=== PATIENT | female | born 1975 | race African-American/Black ===

== ENCOUNTER 2016-12-13 03:32 | Emergency (ER) | payer OTHER ==
[~2016-12-13] VITALS: Ht 175.3 cm; Wt 90.7 kg
--- NOTE | ~2016-12-13 | EKG ---
[facility] [place] [address] ELECTROCARDIOGRAM REPORT Name: LASHONDA AYALA Room #: DEP ROSA MARIA Cody#: [id number] Admission: 12/13/16 Attend Phys: Discharge: 12/13/16 Date of : 71 Report #: [id number] THIS REPORT FOR: //name// [facility] ED Test Date: 2016-12-13 Test Time: 04:19:59 Pat Name: LASHONDA AYALA Department: Room: Gender: F Transplant Case Manager: LUI : 1975 Requested By: Jose Enrique Funez Order Number: [id number] MD: Felice Ornelas Measurements Intervals [place] Rate: 96 P: 74 [place]: 156 QRS: 54 QRSD: 83 T: 72 QT: 460 QTc: 582 Interpretive Statements Sinus rhythm LAE, consider biatrial enlargement Probable left ventricular hypertrophy Anterior Q waves, possibly due to LVH Prolonged QT interval No previous ECG available for comparison Electronically Signed On 12-13-2016 8:26:04 CDT by Felice Ornelas [email or web address] <ELECTRONICALLY SIGNED> By: Felice Ornelas MD, [facility] 12/13/16 0826 0419 0419 Felice Ornelas MD, FACC /EPI
[2016-12-13] MEDS ORDERED: AMLODIPINE BESY10 MG PO (03:56)
[2016-12-13] MEDS ORDERED: AMITIZA 24 MCG24 MC1 (03:57)
[2016-12-13] MEDS ORDERED: LISINOPRIL10 MG PO (03:59)
[2016-12-13 04:43] LABS: ABSOLUTE NEUTROPHILS 8.4 thou/uL (1.4-8.2); BASOPHILS 0.5 % (0.0-2.0); EOSINOPHILS 0.7 % (0.0-3.0); HEMATOCRIT 42.1 % (37.0-47.0); HEMOGLOBIN 14.4 gm/dL (12.0-15.0); LYMPHOCYTES 14.5 % (24.0-44.0); MCH 30.4 pg (26.0-34.0); MCHC 34.2 g/dL (28.0-37.0); MONOCYTES 7.1 % (1.0-8.0); PLATELET COUNT 238 thou/uL (150-400); POLYS 77.2 % (36.0-66.0); RBC 4.73 mil/uL (4.20-5.00); RDW 14.3 % (10.5-14.5); WBC 10.9 thou/uL (4.0-11.0)
[2016-12-13 04:56] LABS: ALBUMIN 4.2 g/dL (3.4-5.0); ALKALINE PHOSPHATASE 73 U/L (46-116); ANION GAP 16 mmol/L (7-16); BUN 23 mg/dL (7-18); CHLORIDE 92 mmol/L (98-107); CO2 23 mmol/L (21-32); CREATININE 2.9 mg/dL (0.6-1.0); GLUCOSE 126 mg/dL (74-106); SGOT 21 U/L (15-37); SGPT 17 U/L (30-65); SODIUM 131 mmol/L (136-145); TOTAL BILIRUBIN 0.7 mg/dL (<0.1-1.0); TOTAL PROTEIN 8.8 g/dL (6.4-8.2); TROPONIN-I < 0.04 ng/mL (<0.04-0.07)
[2016-12-13] MEDS ORDERED: ZOFRAN ODT4 MG PO (04:58)
[2016-12-13] MEDS ORDERED: FLONASE 0.05%50 MCG NASAL (04:58)
[2016-12-13] MEDS ORDERED: LEVAQUIN 500 M500 M2 PO (04:58)
[2016-12-13] MEDS ORDERED: HYDROCODONE-AP1 EAC6 PO (04:58)
[2016-12-13] MEDS ORDERED: MUCINEX TA600 MG/TA2 PO (04:58)
[2016-12-13] MEDS ORDERED: BENTYL 20 MG TA20 M1 PO (04:59)
[2016-12-13] MEDS ORDERED: TRAMADOL 50 MG50 MG PO (04:59)
[2016-12-13] MEDS ORDERED: PANTOPRAZOLE SO40 M1 PO (04:59)
[2016-12-13] MEDS ORDERED: AUGMENTIN 875875 MG PO (04:59)
[2016-12-13] MEDS ORDERED: LISINOPRIL40 MG PO (04:59)
[2016-12-13 05:00] LABS: MANUAL DIFF NO
[2016-12-13] MEDS ORDERED: DULCOLAX5 MG PO (05:06)
[2016-12-13 05:09] LABS: CALCIUM 10.1 mg/dL (8.5-10.1)
[2016-12-13] MEDS ORDERED: ZOFRAN ODT4 MG DISSOLVE (05:14)
[2016-12-13] MEDS ORDERED: PRILOSEC 20 MG20 MG PO (05:14)
[2016-12-13 05:25] LABS: LARGE PLATELETS OCCASIONAL
[2016-12-13 06:05] VITALS: BP 167/137
== END 2016-12-13 06:06 | disposition home or self-care (01) ==
LOC: ER 03:32
PROVIDERS: Emergency Medicine
DX: I12.9 Hypertensive chronic kidney disease with stage 1 through stage 4 chronic kidney disease, or unspecified chronic kidney disease (principal); K85.90 Acute pancreatitis without necrosis or infection, unspecified; N18.9 Chronic kidney disease, unspecified; K59.00 Constipation, unspecified

== ENCOUNTER 2017-01-27 10:54 | Inpatient (IN) | payer OTHER ==
[~2017-01-27] VITALS: Ht 175.3 cm; Wt 80.1 kg
[2017-01-27] VITALS (10 sets, daily range): BP systolic 106–231; BP diastolic 76–139
--- NOTE | ~2017-01-27 | HC ---
[facility] [place] [address] CONSULTATION Name: LASHONDA AYALA Room #: 457-P [facility] IN M.R.#: [id number] Admission: 01/27/17 Attend Phys: Davida Carbone Discharge: 01/28/17 Date of : 71 Report #: [id number] THIS REPORT FOR: //name// CC: AMANDO physician/PCP Davida Carbone DATE OF SERVICE: 01/28/2017 REASON FOR CONSULTATION: Chronic kidney disease and hypertension. 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 She presented to the Emergency Room after not having had her medications for several days. She had accelerated hypertension at that time and was admitted for further evaluation and treatment. It is difficult to communicate with the patient, but she tells me she has not taken her medications recently, although the reason for this is unclear. She has a history of hypertension as well as pancreatitis. She has not seen a molder shoulder pad previously. She denies headache, fevers, chills, sweats or other constitutional complaints. ALLERGIES: She has no known allergies. MEDICATIONS: On admission to the hospital are reported to include lisinopril 40 mg daily, amlodipine 10 mg daily. PAST MEDICAL HISTORY: Otherwise remarkable for deafness. SOCIAL HISTORY: She does not smoke and her history of substance and alcohol use is unknown. REVIEW OF SYSTEMS: Remarkable for the absence of peripheral edema. She denies shortness of breath, headache, epistaxis, loss of consciousness. She denies nausea, vomiting, diarrhea or constipation. PHYSICAL EXAMINATION: GENERAL: Reveals a well-developed female who is edentulous but in no acute distress. VITAL SIGNS: Current blood pressure 117/78, temperature 98.8, pulse 112, respirations 18. SKIN: Warm and dry without rash or erythema. There is no gross clubbing, cyanosis, edema or adenopathy. HEENT: The head is normocephalic and atraumatic. The sclerae are white. The pharynx is benign. NECK: Supple. LUNGS: Hitchcock are grossly clear to percussion and auscultation. CARDIOVASCULAR: Reveals a regular rate and rhythm without rub. [facility] [address] [place] [address] CONSULTATION Name: LASHONDA AYALA Room #: 457-P [facility] IN M.R.#: [id number] Admission: 01/27/17 Attend Phys: Davida Carbone Discharge: 01/28/17 Date of : 71 Report #: [id number] ABDOMEN: Soft and nontender. NEUROLOGIC: Reveals the patient to be deaf, but otherwise with a nonfocal examination. DIAGNOSTIC DATA: Available at this time include sodium 136, potassium 3.6, chloride 103, CO2 22, BUN 29, creatinine 1.7. Albumin 3.7. White blood cell count 6200, hemoglobin 13.1, hematocrit 38.8, platelet count 207,000. ASSESSMENT: 1. 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 She has no records indicating previous renal evaluation, so I will obtain a renal ultrasound as well as current urinalysis, urine for sodium, creatinine and protein as well as screening serologic studies. 2. Hypertensive urgency/accelerated hypertension at this time overly treated with a blood pressure lower than what is good for her given her elevated pressures on initial presentation. I agree with lisinopril and amlodipine, but we will reduce the amlodipine dosage at this time. Every effort should be made to keep her on a once daily antihypertensive regimen given her history of medication noncompliance. 3. Deafness. PLAN: We will follow the patient closely and obtain urine and renal evaluation as outlined. Please see orders. <ELECTRONICALLY SIGNED> By: Frankie Abel MD 01/29/17 0708 1206 1513 Frankie Abel MD /nt
--- NOTE | ~2017-01-27 | 2DMMODE ---
[facility] [address] [place] [address] 2 D/M-MODE ECHOCARDIOGRAM Name: LASHODNA AYALA Room #: 457-P [facility] IN .R.#: [id number] Admission: 01/27/17 Attend Phys: Davida Lowe Discharge: Date of : 71 Date of Service: 01/28/17 1539 Report #: [id number] THIS REPORT FOR: //name// APPROVED REPORT Study performed: 01/28/2017 13:19:41 EXAM: Comprehensive 2D, Doppler, and color-flow Echocardiogram Patient Location: Bedside Room #: [facility] Status: routine Other Information Study Quality: Adequate Indications Dyspnea Chest Pain Hypertension/HDD 2D Dimensions RVDd: 41.77 mm LVEF(%): 73.62 (>50%) IVSd: 9.36 (7-11mm) LVOT Diam: 24.42 (18-24mm) LVDd: 45.12 mm PWd: 11.58 (7-11mm) LVDs: 25.97 (25-40mm) Aortic Root: 34.18 mm Zamora's LVEF: 73.62 % Volumes Left Atrial Volume (Systole) Single Plane 4CH: 33.18 mL Single Plane 2CH: 45.66 mL LA ESV Index: 24.00 mL/m2 Aortic Valve AoV Peak Gomez.: 1.14 m/s AO Peak Gr.: 5.17 mmHg LVOT Max P.44 mmHg LVOT Max V: 0.78 m/s JOE Vmax: 3.21 cm2 Mitral Valve E/A Ratio: 0.7 MV Decel. Time: 161.85 ms MV E Max Gomez.: 0.44 m/s MV A Gomez.: 0.60 m/s [facility] [address] [place] [address] 2 D/M-MODE ECHOCARDIOGRAM Name: LASHONDA AYALA Room #: 457-P [facility] IN [facility].#: [id number] Admission: 01/27/17 Attend Phys: Davida Lowe Discharge: Date of : 71 Date of Service: 01/28/17 1539 Report #: [id number] PHT: 46.94 ms IVRT: 96.89 ms Pulmonary Valve PV Peak Gomez.: 0.90 m/s PV Peak Gr.: 3.27 mmHg Pulmonary Vein P Vein S: 0.44 m/s P Vein A: 0.32 m/s P Vein D: 0.34 m/s P Vein S/D Ratio: 1.29 Tricuspid Valve TR Peak Gomez.: 1.89 m/s RAP Estimate: 5.00 mmHg TR Peak Gr.: 14.26 mmHg PA Pressure: 19.00 mmHg Left Ventricle The left ventricle is normal size. There is normal LV segmental wall motion. There is normal left ventricular wall thickness. The left ventricular systolic function is normal. The left ventricular ejection fraction is within the normal range. LVEF is 65%. Grade I - abnormal relaxation pattern. Right Ventricle The right ventricle is normal size. The right ventricular systolic function is normal. Atria The left atrium size is normal. The right atrium size is normal. Aortic Valve The aortic valve is normal in structure. Trace aortic regurgitation. There is no aortic valvular stenosis. Mitral Valve The mitral valve is normal in structure. Trace mitral regurgitation. No evidence of mitral valve stenosis. Tricuspid Valve The tricuspid valve is normal in structure. Trace tricuspid regurgitation. Pulmonic Valve The pulmonary valve is normal in structure. There is no pulmonic valvular regurgitation. [facility] [address] [place] [address] 2 D/M-MODE ECHOCARDIOGRAM Name: LASHONDA AYALA Room #: 457-P [facility] IN M.R.#: [id number] Admission: 01/27/17 Attend Phys: Davida Lowe Discharge: Date of : 71 Date of Service: 01/28/17 1539 Report #: [id number] Great Vessels The aortic root is normal in size. IVC is normal in size and collapses >50% with inspiration. Pericardium There is no pericardial effusion. <Conclusion> The left ventricular systolic function is normal. LVEF is 65%. Grade I diastolic dysfunction There is normal LV segmental wall motion. The aortic valve is normal in structure. No aortic valvular stenosis or insufficiency. The mitral valve is normal in structure. No insufficiency Pulmonary artery pressure could not be reliably ascertained There is no pericardial effusion. <ELECTRONICALLY SIGNED> By: Felice Ornelas MD, [facility] 01/28/17 1539 1539 1539 Felice Ornelas MD, [facility] /INF
--- NOTE | ~2017-01-27 | EKG ---
[address] [place] [address] ELECTROCARDIOGRAM REPORT Name: LASHONDA AYALA Room #: 457-P [facility] IN M.R.#: [id number] Admission: 01/27/17 Attend Phys: Davida Carbone Discharge: Date of : 71 Report #: [id number] THIS REPORT FOR: //name// [facility] ED Test Date: 2017-01-27 Test Time: 11:11:26 Pat Name: LASHONDA AYALA Department: Room: [facility] Gender: F Financial Services Intern: valerie : 1975 Requested By: Alexa Hammer Order Number: [id number] MD: Felice Ornelas Measurements Intervals [place] Rate: 82 P: 61 [place]: 172 QRS: 53 QRSD: 78 T: 65 QT: 376 QTc: 439 Interpretive Statements Sinus rhythm Anterior infarct, old Compared to ECG 12/13/2016 04:19:59 Prolonged QT interval no longer present Electronically Signed On 01-28-2017 8:39:31 CDT by Felice Ornelas [email or web address] <ELECTRONICALLY SIGNED> By: Felice Ornelas MD, [facility] 01/28/17 0839 1111 1111 Felice Ornelas MD, FACC /EPI
[~2017-01-27 10:54] MED LIST: AMITIZA 24 MCG24 MC1; AMLODIPINE BESY10 MG PO; AUGMENTIN 875875 MG PO; BENTYL 20 MG TA20 M1 PO; DULCOLAX5 MG PO; FLONASE 0.05%50 MCG NASAL; HYDROCODONE-AP1 EAC6 PO; LEVAQUIN 500 M500 M2 PO; LISINOPRIL10 MG PO; LISINOPRIL40 MG PO; MUCINEX TA600 MG/TA2 PO; PANTOPRAZOLE SO40 M1 PO; PRILOSEC 20 MG20 MG PO; TRAMADOL 50 MG50 MG PO; ZOFRAN ODT4 MG DISSOLVE; ZOFRAN ODT4 MG PO
[2017-01-27 11:56] LABS: ABSOLUTE NEUTROPHILS 4.4 thou/uL (1.4-8.2); BASOPHILS 0.5 % (0.0-2.0); EOSINOPHILS 2.6 % (0.0-3.0); HEMATOCRIT 38.8 % (37.0-47.0); HEMOGLOBIN 13.1 gm/dL (12.0-15.0); LYMPHOCYTES 18.3 % (24.0-44.0); MCH 30.5 pg (26.0-34.0); MCHC 33.7 g/dL (28.0-37.0); MCV 90.5 fL (80.0-100.0); MONOCYTES 7.5 % (1.0-8.0); POLYS 71.1 % (36.0-66.0); RBC 4.29 mil/uL (4.20-5.00); RDW 14.2 % (10.5-14.5); WBC 6.2 thou/uL (4.0-11.0)
[2017-01-27 12:03] LABS: MANUAL DIFF NO
[2017-01-27 12:20] LABS: PLATELET COUNT 207 thou/uL (150-400); PLATELET ESTIMATE NORMAL
[2017-01-27 12:58] LABS: ANION GAP 12 mmol/L (7-16); BUN 31 mg/dL (7-18); CALCIUM 9.6 mg/dL (8.5-10.1); CHLORIDE 103 mmol/L (98-107); CO2 21 mmol/L (21-32); CREATININE 1.6 mg/dL (0.6-1.0); GLUCOSE 105 mg/dL (74-106); POTASSIUM 3.6 mmol/L (3.5-5.1); SODIUM 136 mmol/L (136-145)
[2017-01-27 13:05] LABS: ALKALINE PHOSPHATASE 66 U/L (46-116); SGOT 17 U/L (15-37); SGPT 16 U/L (30-65); TOTAL BILIRUBIN 0.5 mg/dL (<0.1-1.0); TOTAL PROTEIN 8.1 g/dL (6.4-8.2); TROPONIN-I < 0.04 ng/mL (<0.04-0.07)
[2017-01-28] VITALS (7 sets, daily range): BP systolic 105–140; BP diastolic 71–97
[2017-01-28 06:27] LABS: CHOLESTEROL 218 mg/dL (<200); HDL CHOLESTEROL 45 mg/dL (>40); LDL CHOLESTEROL 140 mg/dL (<100); TC:HDL 4.8 Ratio (Not establshd); TRIGLYCERIDE 166 mg/dL (<150); VLDL 33 mg/dL (<40)
[2017-01-28 06:28] LABS: SERUM ASSESSMENT Clear
[2017-01-28 07:48] LABS: ALBUMIN 3.7 g/dL (3.4-5.0); ANION GAP 12 mmol/L (7-16); BUN 29 mg/dL (7-18); CALCIUM 9.5 mg/dL (8.5-10.1); CHLORIDE 103 mmol/L (98-107); CO2 22 mmol/L (21-32); CREATININE 1.7 mg/dL (0.6-1.0); GLUCOSE 97 mg/dL (74-106); PHOSPHORUS 3.6 mg/dL (2.5-4.9); POTASSIUM 3.9 mmol/L (3.5-5.1); SODIUM 137 mmol/L (136-145); TROPONIN-I < 0.04 ng/mL (<0.04-0.07)
[2017-01-28] MEDS ORDERED: AMLODIPINE BESY10 MG PO (12:39)
== END 2017-01-28 17:42 | disposition home or self-care (01) | DRG 304 ==
LOC: ER 10:54 → 4W 14:52 → EROBS 14:52 → 4W 16:54
PROVIDERS: Hospitalist; Physician Assistant
DX: I16.1 Hypertensive emergency (principal); N17.0 Acute kidney failure with tubular necrosis; H91.90 Unspecified hearing loss, unspecified ear; N18.9 Chronic kidney disease, unspecified; K21.9 Gastro-esophageal reflux disease without esophagitis; I12.9 Hypertensive chronic kidney disease with stage 1 through stage 4 chronic kidney disease, or unspecified chronic kidney disease; F17.200 Nicotine dependence, unspecified, uncomplicated; F12.10 Cannabis abuse, uncomplicated; Z71.6 Tobacco abuse counseling; Z79.899 Other long term (current) drug therapy
CPT/HCPCS: 10040